=== PATIENT | female | born 1965 | race Caucasian/White ===

== ENCOUNTER 2024-02-19 18:51 | Observation (INO) | payer BC, SELFPAY ==
[2024-02-19 18:58] VITALS: PULSE 107; RESP 18; TEMP 36.7; O2SAT 98
--- NOTE | 2024-02-19 19:06 | XRR_ITS ---
PROCEDURE INFORMATION: Exam: XR Chest Exam date and time: 02/19/2024 8:25 PM Age: 58 years old Clinical indication: Shortness of breath; Additional info: Palpitations TECHNIQUE: Imaging protocol: Radiologic exam of the chest. Views: 1 view. COMPARISON: No relevant prior studies available. FINDINGS: Lungs: Unremarkable. No consolidation. Pleural spaces: Unremarkable. No pleural effusion. No pneumothorax. Heart/Mediastinum: Unremarkable. No cardiomegaly. Bones/joints: Moderate thoracic spondylosis. XR/XR chest 1V portable [id number] IMPRESSION: No acute findings.
--- NOTE | 2024-02-19 19:06 | ECG_ITS ---
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 Measurements Intervals [place] Rate: 121 P: 0 CA: 0 QRS: 45 QRSD: 81 T: 37 QT: 326 QTc: 464 Interpretive Statements ATRIAL FIBRILLATION WITH RAPID VENTRICULAR RESPONSE MODERATE ST DEPRESSION [0.05+ mV ST DEPRESSION] No previous ECG available for comparison Electronically Signed On 02-20-2024 0:02:31 CDT by Ceferino Huddleston M.D. [email or web address]/store/NU/[id number] f
[2024-02-19 19:49] LABS: Basophils # 0.1 10^3/uL (0.0-0.1); Basophils % 0.7 %; Eosinophils # 0.1 10^3/uL (0.0-0.8); Eosinophils % 1.3 %; Hematocrit 43.7 % (36-47); Lymphocytes # 2.2 10^3/uL (0.8-4.8); Lymphocytes % 24.9 %; Mean Corpuscular HGB Conc 33.2 g/dL (30-55); Mean Corpuscular Hemoglobin 27.2 pg (27-33); Mean Corpuscular Volume 81.8 fl (85-98); Mean Platelet Volume 11.5 fL (7.4-10.4); Monocytes # 0.7 10^3/uL (0.2-0.9); Monocytes % 7.6 %; Neutrophils # 5.71 10^3/uL (1.8-7.7); Neutrophils % 65.3 %; Nucleated Red Blood Cells % 0 %; Platelet Count 284 10^3/cmm (157-399); Red Blood Count 5.34 10^6/uL (3.85-5.65); Red Cell Distribution Width 13.2 % (12.1-15.1); White Blood Count 8.74 10^3/uL (3.29-11.43)
[2024-02-19 20:11] LABS: Troponin(5th) Baseline 7 ng/L (0-10)
[2024-02-19 20:15] VITALS: BP 152/81; PULSE 136; RESP 18; O2SAT 96
--- NOTE | 2024-02-19 20:17 | ED_ITS ---
HPI - Arrhythmia/Palpitations 2 General: Chief Complaint: Arrhythmia/Palpitations Stated Complaint: in Afib Chest pain sob Time Seen by Provider: 02/19/24 20:13 History of Present Illness: 58-year-old female with a history of atr ial fibrillation who presents to the emergency room with A-fib with RVR. She says she has been having issues with atrial fibrillation recently. 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 She has been admitted to [facility] several times recently and got her rate down but then it has been coming back up today. Symptoms were in the 180s. Here she is ranging between 110 and 150. She says they changed her from metoprolol to diltiazem and she had her first dose of that today. No chest pain. No lower extremity swelling. She is on Eliquis. No altered mental status. No focal motor deficits. No fevers. No cough. Review of Systems 2 Narrative: Constitutional symptoms: Negative except as documented in HPI. Skin symptoms: Negative except as documented in HPI. Eye symptoms: Negative except as documented in HPI. ENMT symptoms: Negative except as documented in HPI. Respiratory symptoms: Negative except as documented in HPI. Cardiovascular symptoms: Negative except as documented in HPI. Gastrointestinal symptoms: Negative except as documented in HPI. Genitourinary symptoms: Negative except as documented in HPI. Musculoskeletal symptoms: Negative except as documented in HPI. Neurologic symptoms: Negative except as documented in HPI. Psychiatric symptoms: Negative except as documented in HPI. Endocrine symptoms: Negative except as documented in HPI. Physical Exam 2 Narrative: EXAM NARRATIVE: General: Alert, no acute distress. Skin: Warm, dry. Head: Normocephalic, atraumatic. Neck: Supple, trachea midline. Eye: Extraocular movements are intact. Ears, nose, mouth and throat: mucosa moist. Cardiovascular: Irregularly irregular, tachycardic, normal peripheral perfusion. Respiratory: Lungs are clear to auscultation, respirations are non-labored, breath sounds are equal, Symmetrical chest wall expansion. Gastrointestinal: Soft, Nontender, Non distended, Normal bowel sounds. Musculoskeletal: Normal ROM, no deformity. Neurological: Alert and oriented, No focal neurological deficit observed. Psychiatric: Cooperative, appropriate mood & affect. Course 2 Vital Signs: Vital signs: Vital Signs Temperature 98.0 F 02/19/24 18:58 Pulse Rate 101 H 02/19/24 21:00 Respiratory Rate 24 H 02/19/24 21:00 Blood Pressure 145/87 02/19/24 21:00 Pulse Oximetry 96 02/19/24 21:00 Oxygen Delivery Me thod Room Air 02/19/24 21:00 MDM - Arrhythmia/Palpitations Medical Decision Making Medical decision making: Differential diagnosis including but not limited to and based on the above HPI, review of systems and physical exam: for patient with palpitations: atrial fibrillation with rapid ventricular response. ventricular tachycardia. sinus tachycardia. PVCs. also concern for underlying issues causing tachycardia. Infection, electrolyte abnormalities and thyroid issues Orders placed to evaluate differential diagnosis based on the above differential, HPI and physical exam Lab Review: Laboratory results were reviewed and interpreted by myself the emergency room physician. No leukocytosis. White count is 8. No anemia. Hemoglobin is 14. BUN and creatinine are slightly elevated at 13 and 1.2. I do not have any comparisons. Potassium is 3.4. Magnesium is 1.5. Replacing both. Urinalysis is pending Chest x-ray: No acute process. No infiltrate. No pneumothorax. No cardiomegaly. This was reviewed and interpreted by myself the ER physician. I reviewed the patient's medical record. Reexamination: Patient continues to bounce from about 105 to 155. She has no increased work of breathing. No altered mental status. No focal motor deficits. She complains of no abdominal pain no nausea or vomiting. Assessment and plan: Atrial fibrillation with rapid ventricular response. Hypomagnesemia Hypokalemia ?Diltiazem and a diltiazem drip. 10/10 ? 2 g IV magnesium. 40 mill equivalents IV potassium -I discussed the patient with the hospitalist on-call who is admitting the patient. - Discussed findings and plan with patient. Answered any questions. - All laboratory values were reviewed and interpreted personally by myself, the ER physician - All imaging was reviewed and interpreted personally by myself, the ER physician. - Evaluation and treatment of this problem were appropriate in the emergency setting -I spent a total of >35 minutes of critical care time managing the patient, independent of any other practitioner. -The time involved in the performance of separately reportable procedures was not counted towards critical care time. Lab Data 02/19/24 19:42 02/19/24 19:42 Radiology Impressions Chest X-Ray 02/19/24 19:06 IMPRESSION: No acute findings. Laboratory Results WBC 8.74 10^3/uL (3.29-11.43) 02/19/24 19:42 RBC 5.34 10^6/uL (3.85-5.65) 02/19/24 19:42 Hgb 14.50 g/dL (11.27-16.99) 02/19/24 19:42 Hct 43.7 % (36-47) 02/19/24 19:42 MCV 81.8 fl (85-98) L 02/19/24 19:42 MCH 27.2 pg (27-33) 02/19/24 19:42 MCHC 33.2 g/dL (30-55) 02/19/24 19:42 RDW 13.2 % (12.1-15.1) 02/19/24 19:42 Plt Count 284 10^3/cmm (157-399) 02/19/24 19:42 MPV 11.5 fL (7.4-10.4) H 02/19/24 19:42 Neut % (Auto) 65.3 % 02/19/24 19:42 Lymph % (Auto) 24.9 % 02/19/24 19:42 [place] % (Auto) 7.6 % 02/19/24 19:42 Eos % (Auto) 1.3 % 02/19/24 19:42 Baso % (Auto) 0.7 % 02/19/24 19:42 Neut # (Auto) 5.71 10^3/uL (1.8-7.7) 02/19/24 19:42 Lymph # (Auto) 2.2 10^3/uL (0.8-4.8) 02/19/24 19:42 [place] # (Auto) 0.7 10^3/uL (0.2-0.9) 02/19/24 19:42 Eos # (Auto) 0.1 10^3/uL (0.0-0.8) 02/19/24 19:42 Baso # (Auto) 0.1 10^3/uL (0.0-0.1) 02/19/24 19:42 Nucleated RBC % (auto) 0 % 02/19/24 19:42 Nucleated RBCs # 0.0 /100WBC 02/19/24 19:42 Sodium 141 mmol/L (136-145) 02/19/24 19:42 Potassium 3.4 mmol/L (3.5-5.1) L 02/19/24 19:42 Chloride 105 mmol/L (98-107) 02/19/24 19:42 Carbon Dioxide 19 mmol/L (22-29) L 02/19/24 19:42 Anion Gap 20.4 (5-19) H 02/19/24 19:42 BUN 13 mg/dL (6-20) 02/19/24 19:42 Creatinine 1.2 mg/dL (0.5-0.9) H 02/19/24 19:42 GFR Calculation 46.0 mL/min (90-130) L 02/19/24 19:42 Glucose 123 mg/dL (65-115) H 02/19/24 19:42 Calculated Osmolality 293 mOsm/kg (285-295) 02/19/24 19:42 Calcium 9.2 mg/dL (8.5-10.5) 02/19/24 19:42 Magnesium 1.5 mg/dL (1.7-2.3) L 02/19/24 19:42 Total Bilirubin 0.3 mg/dL (0.15-1.2) 02/19/24 19:42 AST 16 U/L (0-32) 02/19/24 19:42 ALT 17 U/L (0-33) 02/19/24 19:42 Alkaline Phosphatase 106 U/L (35-105) H 02/19/24 19:42 Troponin T Baseline 7 ng/L (0-10) 02/19/24 19:42 Total Protein 8.1 g/dL (6.6-8.7) 02/19/24 19:42 Albumin 4.3 g/dL (3.5-5.2) 02/19/24 19:42 Globulin 3.8 g/dL (1.3-4.6) 02/19/24 19:42 TSH 0.87 uIU/mL (0.27-4.20) 02/19/24 19:42 All radiology interpretation(s) finalized by discharge Discharge Plan Discharge Patient Disposition: Admitted As Inpatient Clinical Impression: Atrial fibrillation with rapid ventricular response Condition: Stable Coding Level of Care Code ED [place] Former for Cedricg Moisés
[2024-02-19 20:18] LABS: Alanine Aminotransferase 17 U/L (0-33); Albumin Level 4.3 g/dL (3.5-5.2); Alkaline Phosphatase 106 U/L (35-105); Aspartate Amino Transferase 16 U/L (0-32); Blood Urea Nitrogen 13 mg/dL (6-20); Calcium 9.2 mg/dL (8.5-10.5); Carbon Dioxide 19 mmol/L (22-29); Chloride 105 mmol/L (98-107); Globulin 3.8 g/dL (1.3-4.6); Glucose 123 mg/dL (65-115); Magnesium 1.5 mg/dL (1.7-2.3); Osmolality Calculated 293 mOsm/kg (285-295); Sodium 141 mmol/L (136-145); Thyroid Stimulating Hormone 0.87 uIU/mL (0.27-4.20); Total Bilirubin 0.3 mg/dL (0.15-1.2); Total Protein 8.1 g/dL (6.6-8.7)
[2024-02-19] MEDS: dilTIAZem 100 MG in sodium chloride 0.9% (add-van) 100 ML 10 MG IV (20:29)
[2024-02-19 20:30] VITALS: BP 146/84; PULSE 116; RESP 20; O2SAT 94
[2024-02-19] MEDS: dilTIAZem 5 mg/mL SDV 5 mL 10 MG IVP (20:30)
[2024-02-19 20:31] LABS: Anion Gap 20.4 (5-19); Potassium 3.4 mmol/L (3.5-5.1)
--- NOTE | 2024-02-19 20:37 | PC.NURSE ---
Diltiazem started at 5mL/hr
--- NOTE | 2024-02-19 20:37 | PC.NURSE ---
MEDICATIONS ADMINISTERED ON THIS PT ADMINISTERED BY ANTONIO DIAL RN. MEDICATIONS MISTAKENLY DOCUMENTED UNDER OTHER RN, RAKESH ALVARENGA.
[2024-02-19 21:00] VITALS: BP 145/87; PULSE 101; RESP 24; O2SAT 96
--- NOTE | 2024-02-19 21:06 | ECG_ITS ---
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 Measurements Intervals [place] Rate: 119 P: 0 DC: 0 QRS: 39 QRSD: 77 T: -3 QT: 349 QTc: 492 Interpretive Statements ATRIAL FIBRILLATION WITH RAPID VENTRICULAR RESPONSE NONSPECIFIC ST & T-WAVE ABNORMALITY ABNORMAL RHYTHM ECG Compared to ECG 02/19/2024 18:52:31 T-wave abnormality now present ST (T wave) deviation no longer present Electronically Signed On 02-20-2024 0:04:52 CDT by Ceferino Huddleston M.D. [email or web address]/store/OM/[id number]
[2024-02-19 21:31] LABS: Procalcitonin 0.06 ng/mL (0-0.5)
--- NOTE | 2024-02-19 21:57 | PC.NURSE ---
attempted to call report at [phone]. will call back.
[2024-02-19 22:00] VITALS: BP 122/87; PULSE 114; RESP 19; O2SAT 97
[2024-02-19 22:18] LABS: Troponin 5 2HR 8.46 ng/L (0-10); Troponin 5 2HR Delta 1.46 ABS# (0-10)
--- NOTE | 2024-02-19 23:25 | PM.HP ---
Providers/Chief Complaint Admitting Physician: Lucas Roper MD Primary Care Provider: BOBBI Ariza Chief Complaint: in Afib Chest pain sob History of Present Illness Taryn Maldonado is a 58 year old female with past medical history of breast cancer status post chemoradiation in [id number]. She has had longstanding tachycardia for many years however was previously determined not to be atrial fibrillation. In November 2023, she had persistent palpitations and was evaluated at [facility] in [place] where she was diagnosed with A-fib. Initially started treatment with metoprolol, however was then switched to diltiazem recently as metoprolol was unable to control her heart rate adequately. She is on anticoagulation with Eliquis 5 mg p.o. twice daily. She presented to the emergency room today due to palpitations that started at around 1 PM today. Heart rate was 150, her smart watch alerted her to this being atrial fibrillation and she presented into the emergency room. No dyspnea. She was found to have A-fib upon arrival with a rate of 140 bpm. She started infusion with Cardizem in the emergency room which is continuing so far. Any chest pain. Stated that she had an echocardiogram in November at [facility] which had detected some leakage , was otherwise unremarkable. She has baseline CKD and chronic lower extremity edema. There has been no worsening of the edema recently. Review of Systems General: Reports: 10 or more systems reviewed and unremarkable except in HPI and below Const: Denies: fever(s), chills or body aches Eyes: Denies: change in vision, blurry vision or photophobia ENMT: Reports: hoarseness; Denies: throat pain, enlarged tonsils, odynophagia or nasal congestion Card: Denies: chest pain, palpitations, irregular heart rhythm, edema, swelling of feet/ankles, lightheadedness, pre-syncope, dyspnea on exertion or orthopnea Resp: Denies: dyspnea, productive cough, non-productive cough, wheezing, stridor, pain on inspiration, change in phlegm color, hemoptysis or chest congestion GI: Denies: abdominal pain, nausea, vomiting, hematemesis, coffee ground emesis, dysphagia, heartburn, diarrhea, constipation, GI cramping, change in stool character, hematochezia or melena : Denies: flank pain, difficulty voiding, dysuria, urinary frequency, urinary urgency, urinary hesitancy or hematuria Musc: Denies: neck pain, back pain, extremity pain, joint swelling, joint warmth or deformity Neuro: Denies: headache(s), numbness in extremities, weakness in extremities, sensory changes, difficulty walking, frequent falls, dizziness, vertigo, behavioral changes, Slurred speech present or seizure-like activity Psych: Denies: anxiety, depression, suicidal ideation or homicidal ideation Endo: Denies: polyuria, polydipsia, tired all the time, cold intolerance or hot flashes Stan/Lymph: Denies: easy bruising or easy bleeding Medications/Allergies Home Medications Medication Instructions Recorded Confirmed Last Taken Type lisinopril 5 mg tablet 5 mg PO DAILY 11/27/22 02/20/24 02/19/24 History omeprazole 40 mg capsule,delayed 40 mg PO DAILY 11/27/22 02/20/24 02/19/24 History release apixaban 5 mg tablet (Eliquis) 5 mg PO BID 02/20/24 02/20/24 02/19/24 History diltiazem HCl 120 mg 120 mg PO 1XD 02/20/24 02/20/24 02/19/24 History capsule,extended release 24 hr Allergies Allergy/AdvReac Type Severity Reaction Status Date / Time codeine Allergy Intermediate ADR-Confusi Verified 11/27/22 17:45 on Sulfa (Sulfonamide Allergy Intermediate ADR-Confusi Verified 11/27/22 17:45 Antibiotics) on Latex, Natural Rubber Allergy ALGY-Rash Verified 02/19/24 19:01 Penicillins Allergy ADR-Confusi Verified 02/19/24 19:01 on PFSH Acute PFSH: Medical History Chronic anticoagulation Hypertension Swelling of lower extremity CKD (chronic kidney disease) Breast cancer s/p chemoradiation 2015- Vitals/I&O/Wt Last Vital Signs Temp 98.0 F 02/19/24 18:58 Pulse 114 H 02/19/24 22:00 Resp 19 H 02/19/24 22:00 BP 122/87 02/19/24 22:00 Pulse Ox 97 02/19/24 22:00 O2 Del Method Room Air 02/19/24 22:00 02/19/24 02/19/24 02/20/24 14:59 22:59 06:59 Intake Total 1.167 / 1.167 Balance 1.167 / 1.167 Weight last 48 hrs Weight 104.326 kg Physical Exam Narrative: General: No acute distress, AO x3 HEENT: PERRLA, pupils bilaterally equal and reactive, pallors not present Chest: Normal vesicular breath sounds, no added sounds, equal good air entry bilaterally CVS: S1-S2 regular, no murmurs, no tachycardia, no gallops, no rubs Abdomen: Soft, nontender, no organomegaly, bowel sounds present Neuro: No focal deficits, no facial deformity, AO x3, power 5/5 in all limbs Data 02/20/24 01:59 02/20/24 01:59 Other Labs: trop 7--> 8.4--> pending tsh 0.87 Patient: Taryn Maldonado Unit #: [id number] : 1965 Age/Sex: 58 / F ADM Date: 02/19/24 Loc: ER Room/Bed: Attending Dr: Rosetta Busby MD Ordering Provider/Ordering MD: Jacqueline Rees MD Date of Service: 02/19/24 Procedure(s): XR chest 1V portable [id number] Accession Number(s): [id number] Report Number: [id number] PROCEDURE INFORMATION: Exam: XR Chest Exam date and time: 02/19/2024 8:25 PM Age: 58 years old Clinical indication: Shortness of breath; Additional info: Palpitations TECHNIQUE: Imaging protocol: Radiologic exam of the chest. Views: 1 view. COMPARISON: No relevant prior studies available. FINDINGS: Lungs: Unremarkable. No consolidation. Pleural spaces: Unremarkable. No pleural effusion. No pneumothorax. Heart/Mediastinum: Unremarkable. No cardiomegaly. Bones/joints: Moderate thoracic spondylosis. XR/XR chest 1V portable [id number] IMPRESSION: No acute findings. A&P Assessment and plan (1) Atrial fibrillation with rapid ventricular response: 58-year-old lady diagnosed with A-fibin November 2023. Presented today with palpitations, found to have A-fib with RVR on EKG. She has been started on Cardizem infusion in the emergency room which we will continue for now. Heart rate at the time of this assessment is at 101 bpm. Acute to CSU Start overlap with oral Cardizem 30 mg every 6 hours. Will titrate according to heart rate response. TSH normal. Recently had echocardiogram at [facility] in November, results have been requested. 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 Has previously been followed at [facility], however states that she will not be returning there. Denies dyspnea. No signs of CHF at this present time. (2) Chronic anticoagulation: Continue Eliquis 5 mg p.o. twice daily Plan DVT prophylaxis: Eliquis will suffice Full code Attestations Medical Necessity Statement*: Greater than 2 midnight stay is expected for control of A-fib with RVR, obtaining pertinent past results, further management dependent on clinical course. Coding Level of Care Code Acute Code for Chg Fwd High MDM includes number and complexity of problems actively addressed during encounter, amount and/or complexity of data reviewed/ordered and described risk of complication, morbidity or mortality of management as documented Diagnoses Atrial fibrillation with rapid ventricular response I48.91 Chronic anticoagulation Z79.01
[2024-02-20] VITALS (9 sets, daily range): BP systolic 132–152; BP diastolic 79–90; PULSE 76–104; RESP 15–23; TEMP 36.6; O2SAT 92–97; BMI 38.1
[2024-02-20 00:44] LABS: Iron 44 ug/dL (37-145)
[2024-02-20] MEDS: potassium chloride ER 20 mEq Tablet 40 MEQ PO (00:57)
[2024-02-20] MEDS: magnesium sulfate premix 2 GM/50 ML PIGGYBACK IV (00:58)
[2024-02-20 01:00] LABS: Vitamin B12 424 pg/mL (232-1245)
[2024-02-20 01:20] LABS: Percent Saturation 13.2 % (20-50); Total Iron Binding Capacity 331 mcg/dl; Unsaturated Iron Binding 287 ug/dL (112-347)
[2024-02-20 01:39] LABS: Add Urine Microscopic? YES; Bilirubin Urine Neg (Negative); Blood Urine Neg (Negative); Glucose Urine UA Norm (Normal); Ketones Urine Negative (Negative); Leukocyte Esterase Urine Trace (Negative); Nitrate Urine Negative (Negative); Protein Urine Neg (Negative); Specific Gravity, Urine 1.005 (1.005-1.030); Urine Appearance Clear (CLEAR); Urine Color Yellow (Yellow); Urobilinogen Urine Norm (Negative); pH Urine 6 (5-7)
[2024-02-20 01:40] LABS: Bacteria Urine TRACE /hpf; WBC Urine 0-5 /hpf (0-5)
[2024-02-20 01:41] LABS: Add Urine Culture? No
[2024-02-20] MEDS: dilTIAZem 30 mg Tablet PO ×2 (02:20→07:15)
[2024-02-20 02:33] LABS: Basophils % 0.5 %; Eosinophils # 0.1 10^3/uL (0.0-0.8); Eosinophils % 1.7 %; Hematocrit 37.6 % (36-47); Lymphocytes % 26.3 %; Mean Corpuscular HGB Conc 32.7 g/dL (30-55); Mean Corpuscular Hemoglobin 27.5 pg (27-33); Mean Corpuscular Volume 84.1 fl (85-98); Mean Platelet Volume 11.6 fL (7.4-10.4); Monocytes # 0.7 10^3/uL (0.2-0.9); Monocytes % 9.3 %; Neutrophils # 4.69 10^3/uL (1.8-7.7); Neutrophils % 61.5 %; Nucleated Red Blood Cells % 0 %; Platelet Count 234 10^3/cmm (157-399); Red Blood Count 4.47 10^6/uL (3.85-5.65); Red Cell Distribution Width 13.2 % (12.1-15.1); White Blood Count 7.63 10^3/uL (3.29-11.43)
[2024-02-20 02:46] LABS: Troponin 5 6HR 7.64 ng/L (0-10); Troponin 5 6HR Delta 0.64 ng/L (0-12)
[2024-02-20 02:49] LABS: Chol HDL Ratio 4.44 mg/dL (0.0-4.40); Cholesterol 142 mg/dL (0-200); Estmated Average Glucose 105; HDL Cholesterol 32 mg/dL (60-100); Hemoglobin A1C 5.3 % (4.0-6.0); LDL Cholesterol Calculated 91 mg/dL (50-129); LDL HDL Ratio 2.84 RATIO (0.00-3.22); Triglycerides 97 mg/dL (0-150)
[2024-02-20 02:50] LABS: Alanine Aminotransferase 13 U/L (0-33); Albumin Level 3.5 g/dL (3.5-5.2); Alkaline Phosphatase 93 U/L (35-105); Anion Gap 18.5 (5-19); Aspartate Amino Transferase 11 U/L (0-32); Blood Urea Nitrogen 14 mg/dL (6-20); Calcium 8.6 mg/dL (8.5-10.5); Carbon Dioxide 19 mmol/L (22-29); Chloride 105 mmol/L (98-107); Creatinine Clr Calc Pharmacy 59.6762; Glomerular Filtration Rate 41.9 mL/min (90-130); Glucose 122 mg/dL (65-115); Magnesium 2.1 mg/dL (1.7-2.3); Osmolality Calculated 290 mOsm/kg (285-295); Phosphorus 3.5 mg/dL (2.5-4.5); Potassium 3.5 mmol/L (3.5-5.1); Sodium 139 mmol/L (136-145); Total Bilirubin 0.2 mg/dL (0.15-1.2); Total Protein 6.5 g/dL (6.6-8.7)
--- NOTE | 2024-02-20 03:55 | ECG_ITS ---
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 Measurements Intervals [place] Rate: 78 P: 56 ME: 139 QRS: 66 QRSD: 90 T: 12 QT: 375 QTc: 427 Interpretive Statements SINUS RHYTHM POSSIBLE LEFT ATRIAL ENLARGEMENT [-0.1mV P-WAVE IN V1/V2] LOW QRS VOLTAGE IN PRECORDIAL LEADS [QRS DEFLECTION < 1.0 mV IN CHEST LEADS] MODERATE T-WAVE ABNORMALITY, CONSIDER LATERAL ISCHEMIA [-0.1+ mV T-WAVE IN I/aVL/V5/V6] MODERATE T-WAVE ABNORMALITY, CONSIDER INFERIOR ISCHEMIA [-0.1+ mV T-WAVE IN II/aVF] Compared to ECG 02/19/2024 22:04:36 Low QRS voltage now present Possible ischemia now present Atrial fibrillation no longer present T-wave abnormality still present Electronically Signed On 02-20-2024 22:09:02 CDT by Aditya Hester M.D. [id number]
[2024-02-20] MEDS: apixaban 5 mg Tablet PO (08:32)
[2024-02-20] MEDS: lisinopril 5 mg Tablet PO (08:32)
[2024-02-20] MEDS: pantoprazole DR 40 mg Tablet PO (08:32)
--- NOTE | 2024-02-20 12:32 | PM.DCS ---
Discharge Providers Date of Admission: 02/20/24 00:04 Date of Discharge: February 20, 2024 Attending Provider at Admission: Lucas Roper MD Attending Provider at Discharge: Ethan Meyers MD Primary Care Provider: BOBBI Ariza Diagnoses at Discharge Discharge Diagnosis (1) Atrial fibrillation with rapid ventricular response: Status: Acute (2) Chronic anticoagulation: Status: Acute Reason for Visit Reason for Visit: in Afib Chest pain sob Hospital Course Hospital Course delmar Maldonado is a 58 year old female with past medical history of breast cancer status post chemoradiation in [id number]. She has had longstanding tachycardia for many years however was previously determined not to be atrial fibrillation. In November 2023, she had persistent palpitations and was evaluated at [facility] in [place] where she was diagnosed with A-fib. Initially started treatment with metoprolol, however was then switched to diltiazem recently as metoprolol was unable to control her heart rate adequately. She is on anticoagulation with Eliquis 5 mg p.o. twice daily. She presented to the emergency room today due to palpitations that started at around 1 PM today. Heart rate was 150, her smart watch alerted her to this being atrial fibrillation and she presented into the emergency room. No dyspnea. She was found to have A-fib upon arrival with a rate of 140 bpm. She started infusion with Cardizem in the emergency room which is continuing so far. Any chest pain. Stated that she had an echocardiogram in November at [facility] which had detected some leakage , was otherwise unremarkable. She has baseline CKD and chronic lower extremity edema. There has been no worsening of the edema recently. Patient was managed for A-fib with RVR, managed on a Cardizem drip, converted to normal sinus rhythm late in the evening, managed on p.o. Cardizem, will be discharged on p.o. Cardizem 120 mg twice daily, with close follow-up with primary care provider and cardiac electrophysiology at [facility]. Physical Exam Const: COMMON NORMALS: no acute distress and patient oriented x3 Resp: COMMON NORMALS: normal respiratory effort, No retractions, No use of accessory muscles and clear to auscultation bilaterally AUSCULTATION: clear to auscultation bilaterally Cardio: COMMON NORMALS: regular rhythm, S1 normal heart sound present and S2 normal heart sound present RHYTHM: regular rhythm HEART SOUNDS: S1 normal heart sound present and S2 normal heart sound present GI: COMMON NORMALS: Normal to inspection, nondistended, normoactive bowel sounds present and non-tender Extremity: COMMON NORMALS: no pedal edema Neuro: COMMON NORMALS: patient oriented x3 Psych: COMMON NORMALS: mental status grossly normal Discharge Data Studies Completed and Pending Completed Studies During Hospitalization Category Date Time Status XR chest 1V portable [id number] Stat Exams 02/19/24 19:06 Completed Radiology Impressions Chest X-Ray 02/19/24 19:06 IMPRESSION: No acute findings. Laboratory Results WBC 7.63 10^3/uL (3.29-11.43) 02/20/24 01:59 RBC 4.47 10^6/uL (3.85-5.65) 02/20/24 01:59 Hgb 12.30 g/dL (11.27-16.99) 02/20/24 01:59 Hct 37.6 % (36-47) 02/20/24 01:59 MCV 84.1 fl (85-98) L 02/20/24 01:59 MCH 27.5 pg (27-33) 02/20/24 01:59 MCHC 32.7 g/dL (30-55) 02/20/24 01:59 RDW 13.2 % (12.1-15.1) 02/20/24 01:59 Plt Count 234 10^3/cmm (157-399) 02/20/24 01:59 MPV 11.6 fL (7.4-10.4) H 02/20/24 01:59 Neut % (Auto) 61.5 % 02/20/24 01:59 Lymph % (Auto) 26.3 % 02/20/24 01:59 [place] % (Auto) 9.3 % 02/20/24 01:59 Eos % (Auto) 1.7 % 02/20/24 01:59 Baso % (Auto) 0.5 % 02/20/24 01:59 Neut # (Auto) 4.69 10^3/uL (1.8-7.7) 02/20/24 01:59 Lymph # (Auto) 2.0 10^3/uL (0.8-4.8) 02/20/24 01:59 [place] # (Auto) 0.7 10^3/uL (0.2-0.9) 02/20/24 01:59 Eos # (Auto) 0.1 10^3/uL (0.0-0.8) 02/20/24 01:59 Baso # (Auto) 0.0 10^3/uL (0.0-0.1) 02/20/24 01:59 Nucleated RBC % (auto) 0 % 02/20/24 01:59 Nucleated RBCs # 0.0 /100WBC 02/20/24 01:59 Sodium 139 mmol/L (136-145) 02/20/24 01:59 Potassium 3.5 mmol/L (3.5-5.1) 02/20/24 01:59 Chloride 105 mmol/L (98-107) 02/20/24 01:59 Carbon Dioxide 19 mmol/L (22-29) L 02/20/24 01:59 Anion Gap 18.5 (5-19) 02/20/24 01:59 BUN 14 mg/dL (6-20) 02/20/24 01:59 Creatinine 1.3 mg/dL (0.5-0.9) H 02/20/24 01:59 GFR Calculation 41.9 mL/min (90-130) L 02/20/24 01:59 Glucose 122 mg/dL (65-115) H 02/20/24 01:59 Estimat Average Glucose 105 02/20/24 01:59 Hemoglobin A1c 5.3 % (4.0-6.0) 02/20/24 01:59 Calculated Osmolality 290 mOsm/kg (285-295) 02/20/24 01:59 Calcium 8.6 mg/dL (8.5-10.5) 02/20/24 01:59 Phosphorus 3.5 mg/dL (2.5-4.5) 02/20/24 01:59 Magnesium 2.1 mg/dL (1.7-2.3) 02/20/24 01:59 Iron 44 ug/dL (37-145) 02/19/24 00:00 TIBC 331 mcg/dl 02/19/24 00:00 % Saturation 13.2 % (20-50) L 02/19/24 00:00 Unsat Iron Binding 287 ug/dL (112-347) 02/19/24 00:00 Total Bilirubin 0.2 mg/dL (0.15-1.2) 02/20/24 01:59 AST 11 U/L (0-32) 02/20/24 01:59 ALT 13 U/L (0-33) 02/20/24 01:59 Alkaline Phosphatase 93 U/L (35-105) 02/20/24 01:59 Troponin T Baseline 7 ng/L (0-10) 02/19/24 19:42 Troponin T 120 Minute 8.46 ng/L (0-10) 02/19/24 21:40 Delta Troponin T 1.46 ABS# (0-10) 02/19/24 21:40 Troponin T Hi Sens 6Hr 7.64 ng/L (0-10) 02/20/24 01:59 Troponin T Hi Sens 6Hr Delta 0.64 ng/L (0-12) 02/20/24 01:59 Total Protein 6.5 g/dL (6.6-8.7) L 02/20/24 01:59 Albumin 3.5 g/dL (3.5-5.2) 02/20/24 01:59 Globulin 3.0 g/dL (1.3-4.6) 02/20/24 01:59 Triglycerides 97 mg/dL (0-150) 02/20/24 01:59 Cholesterol 142 mg/dL (0-200) 02/20/24 01:59 LDL Cholesterol, Calc 91 mg/dL (50-129) 02/20/24 01:59 HDL Cholesterol 32 mg/dL (60-100) L 02/20/24 01:59 LDL/HDL Ratio 2.84 RATIO (0.00-3.22) 02/20/24 01:59 Cholesterol/HDL Ratio 4.44 mg/dL (0.0-4.40) H 02/20/24 01:59 Vitamin B12 424 pg/mL (232-1245) 02/19/24 00:00 Folate 12.0 ng/mL (4.8-37.3) 02/20/24 01:59 Procalcitonin 0.06 ng/mL (0-0.5) 02/19/24 19:42 TSH 0.87 uIU/mL (0.27-4.20) 02/19/24 19:42 Urine Color Yellow (Yellow) 02/20/24 01:13 Urine Appearance Clear (CLEAR) 02/20/24 01:13 Urine pH 6 (5-7) 02/20/24 01:13 Ur Specific [place] 1.005 (1.005-1.030) 02/20/24 01:13 Urine Protein Neg (Negative) 02/20/24 01:13 Urine Glucose (UA) Norm (Normal) 02/20/24 01:13 Urine Ketones Negative (Negative) 02/20/24 01:13 Urine Blood Neg (Negative) 02/20/24 01:13 Urine Nitrate Negative (Negative) 02/20/24 01:13 Urine Bilirubin Neg (Negative) 02/20/24 01:13 Urine Urobilinogen Norm mg/dL (Negative) 02/20/24 01:13 Ur Leukocyte Esterase Trace (Negative) H 02/20/24 01:13 Urine RBC None /hpf (0-2) 02/20/24 01:13 Urine WBC 0-5 /hpf (0-5) 02/20/24 01:13 Ur Squamous Epith Cells 5-10 /hpf (0-5) H 02/20/24 01:13 Amorphous Sediment Not Reportable 02/20/24 01:13 Urine Bacteria Trace /hpf (NONE) 02/20/24 01:13 Vitals Last Vital Signs Temp 97.9 F 02/20/24 07:30 Pulse 78 02/20/24 07:30 Resp 23 H 02/20/24 07:30 BP 135/86 02/20/24 07:30 Pulse Ox 97 02/20/24 07:30 O2 Del Method Room Air 02/20/24 07:30 Discharge Plan Discharge Patient Disposition: Home Condition: Stable Prescriptions: New diltiazem HCl [Cardizem] 120 mg tablet 120 mg PO BID 30 Days Qty: 60 0RF Continued omeprazole 40 mg capsule,delayed release(DR/EC) 40 mg PO DAILY lisinopril 5 mg tablet 5 mg PO DAILY Eliquis 5 mg tablet 5 mg PO BID Discontinued diltiazem HCl 120 mg capsule,extended release 24hr 120 mg PO 1XD Discharge Orders: Discharge Order (Routine); Ordered 02/20/24 Ordered By: Ethan Meyers Referrals: Gretta Ferrari FNP [Primary Care Provider] - 03/02/24 1:00 pm Discharge Diet: Cardiac Discharge Activity: Resume usual activity Patient Instructions: Opioid Safety Activity Restrictions/Additional Instructions: - Please monitor heart rates and blood pressure ? If you develop chest pain or palpitations please go to emergency room ? Please follow-up with electrophysiology at [facility] Hospital Discharge Attestations Time Spent in Discharge Care*: greater than 30 min Quality Metrics Clinical Quality Measures [ No reported AMI, CVA or VTE this stay] Coding Level of Care Code 23417 Total time (in minutes) for Discharge: 45 Diagnoses Atrial fibrillation with rapid ventricular response I48.91 Chronic anticoagulation Z79.01
[2024-02-20] MEDS: dilTIAZem 60 mg Tablet PO (14:15)
--- NOTE | 2024-02-20 14:35 | PC.NURSE ---
Discharge Note Patient discharged to [home] via [w/c to POV] accompanied by [her spouse]. Discharge instructions reviewed with patient and/or surgical sales representative. Mobile pharmacy medications and/or prescriptions provided. Belongings/home medications returned.
== END 2024-02-20 14:44 | disposition home or self-care (01) ==
LOC: ER 21:15 → CSU 22:49
PROVIDERS: Admitting Provider Student in an Organized Health Care Education/Training Program; Emergency Provider Emergency Medicine; PCP Registered Nurse; Visit Provider Family Medicine
DX: I48.91 Unspecified atrial fibrillation (principal); Z79.01 Long term (current) use of anticoagulants; Z85.3 Personal history of malignant neoplasm of breast; Z92.21 Personal history of antineoplastic chemotherapy; R60.0 Localized edema; E11.22 Type 2 diabetes mellitus with diabetic chronic kidney disease; I12.9 Hypertensive chronic kidney disease with stage 1 through stage 4 chronic kidney disease, or unspecified chronic kidney disease; N18.9 Chronic kidney disease, unspecified
CPT/HCPCS: 36415; 71045; 80053; 80061; 81001; 82607; 82746; 83036; 83540; 83550; 83735; 84100; 84145; 84443; 84484; 85025; 93005; 94664; 96372; 96374; 96376; 99285; G0378; J1644; J3475; J3490

== ENCOUNTER 2024-02-21 23:28 | Emergency (ER) | payer BC, SELFPAY ==
--- NOTE | 2024-02-21 23:31 | XRR_ITS ---
PROCEDURE INFORMATION: Exam: XR Chest Exam date and time: 02/21/2024 11:32 PM Age: 58 years old Clinical indication: Pain; Chest pressure; Patient HX: C/O chest tightness with tachycardia. History of afib rvr and breast cancer. ; Additional info: Chest pain TECHNIQUE: Imaging protocol: Radiologic exam of the chest. Views: 1 view. COMPARISON: CR (CHEST, ) 02/19/2024 8:25 PM FINDINGS: Lungs: No focal consolidation or other acute appearing pulmonary opacity. Pleural spaces: No pleural effusion or pneumothorax noted. Heart/Mediastinum: There is cardiomegaly. Bones/joints: No acute osseous abnormality. Intraperitoneal space: There is no free intraperitoneal air. XR/XR chest 1V portable [id number] IMPRESSION: No acute cardiopulmonary disease.
[2024-02-21 23:32] VITALS: BP 117/76; PULSE 80; RESP 16; TEMP 36.5; O2SAT 98
--- NOTE | 2024-02-21 23:44 | ECG_ITS ---
[facility] Test Date: 2024-02-21 Pat Name: Taryn Maldonado Department: Room: Gender: Female Full Time: : 1965 Requested By: Marce Bo Order Number: [id number] Olsen MD: Ceferino Huddleston M.D. Measurements Intervals Show Low Rate: 84 P: 0 MS: 0 QRS: 53 QRSD: 80 T: 43 QT: 394 QTc: 467 Interpretive Statements ATRIAL FIBRILLATION Compared to ECG 02/20/2024 03:55:35 Sinus rhythm no longer present T-wave abnormality no longer present Possible ischemia no longer present Electronically Signed On 02-22-2024 21:37:28 CDT by Ceferino Huddleston M.D. [id number]
--- NOTE | 2024-02-22 00:01 | W.ED.ARRPALP ---
Documented by User: DARI Espinosa 02/22/24 00:43 HPI - Arrhythmia/Palpitations General: Chief Complaint: Arrhythmia/Palpitations Stated Complaint: Afib Time Seen by Provider: 02/21/24 23:30 Source: patient and family Mode of arrival: ambulatory Limitations: no limitations History of Present Illness: Patient is a nice 58-year-old female with a history of atrial fibrillation recently hospitalized for atrial fibrillation with RVR here for paroxysmal episode of A-fib with RVR earlier this evening. Patient states she was discharged from the hospital yesterday. She states they increased her dose of Cardizem from 120 daily to 120 twice daily. Patient states she did take both doses today. She states she woke up around 10:30 PM this evening and her watch alerted her that she was in A-fib. She states rate got as high as 170s. Upon arrival patient feels improved. She arrives with stable vital signs with a rate in the 80s. Patient states she has follow-up with cardiology/electrophysiology at [facility] next week. MD complaint: rapid heart beat, heart racing , skipped beats , palpitations, irregular heart beat and atrial fibrillation Onset (ago): hour(s) Duration: now resolved Severity: moderate Context: awoke with symptoms Arrhythmia history: atrial fibrillation and on anti-coagulants Associated symptoms: Reports no associated symptoms; Deny nausea, pre-syncope, syncope or vomiting Review of Systems Const: Denies: fever(s) Card: Reports: palpitations and irregular heart rhythm; Denies: chest pain, edema, swelling of feet/ankles, lightheadedness, syncope, pre-syncope, dyspnea on exertion, orthopnea, leg pain with exertion or acrocyanosis Resp: Reports: dyspnea (during episode-resolved now); Denies: productive cough, non-productive cough, wheezing, stridor, pain on inspiration, change in phlegm color, hemoptysis or chest congestion GI: Denies: nausea or vomiting Musc: Denies: extremity pain or extremity swelling Neuro: Denies: numbness in extremities, weakness in extremities, sensory changes or dizziness PFS ED PFSH: Medical History Chronic anticoagulation Hypertension Swelling of lower extremity CKD (chronic kidney disease) Breast cancer s/p chemoradiation 2015- Physical Exam Const: COMMON NORMALS: no acute distress, patient oriented x3, no limitations, alert and well nourished GENERAL APPEARANCE: cooperative NUTRITIONAL APPEARANCE: obese ORIENTATION/CONSCIOUSNESS: Yes awake, Yes oriented to person, Yes oriented to place and Yes oriented to time Chest: COMMONS NORMALS: normal inspection of the chest and normal palpation of entire chest wall Resp: COMMON NORMALS: normal respiratory effort and clear to auscultation bilaterally AUSCULTATION: clear to auscultation bilaterally Cardio: COMMON NORMALS: regular rate and regular rhythm RATE: regular rate RHYTHM: regular rhythm OTHER: pt was in atrial fibrillation at initial presentation-EKG showing atrial fib with rate of 84; she converted to normal sinus at some point during her stay and stayed in this during most of examination/re-examinations Extremity: COMMON NORMALS: no clubbing, cyanosis or edema, no calf tenderness and no pedal edema GENERAL: Yes normal exam except as noted Neuro: COMMON NORMALS: patient oriented x3 SENSORIUM/ORIENTATION: Yes alert, Yes oriented to person, Yes oriented to place and Yes oriented to time Course Vital Signs: Vital signs: Vital Signs Temperature 97.7 F 02/21/24 23:32 Pulse Rate 80 02/21/24 23:32 Respiratory Rate 16 02/21/24 23:32 Blood Pressure 117/76 02/21/24 23:32 Pulse Oximetry 98 02/21/24 23:32 Oxygen Delivery Me thod Room Air 02/21/24 23:32 MDM - Arrhythmia/Palpitations Medical Decision Making Patient is a nice 58-year-old female with a history of atrial fibrillation here for paroxysmal episode of A-fib with RVR. By the time she arrived to the emergency department her initial EKG showing atrial fibrillation with a rate of 84. At time of my examination she has converted out of this and is now sinus rhythm. Patient is on Cardizem 120 twice daily. Her blood pressure currently is 117/76. Patient is worried if she has additional episodes at home and worried additional Cardizem may cause her blood pressure to lower. Discussed case with Dr. Sandhu who is recommending having patient take an additional 30 mg of Cardizem at home if she has an additional episode-can wait an hour unless severely symptomatic. If this does not relieve her symptoms then she will need to return. Recommend continue plan to follow up with cardiology next week. Lab work was not performed today as patient was just discharged from the hospital yesterday and would be unlikely to meter changes records clerk. Differential Diagnosis Likely palpitations and artial fibrillation Medical Records I reviewed the patient's medical records. Lab Data Radiology Impressions Chest X-Ray 02/21/24 23:31 IMPRESSION: No acute cardiopulmonary disease. All radiology interpretation(s) finalized by discharge Discharge Plan Discharge Patient Disposition: Home Clinical Impression: Atrial fibrillation Qualifiers: Atrial fibrillation type: unspecified Qualified Code(s): I48.91 - Unspecified atrial fibrillation Condition: Stable Prescriptions: New Cardizem 30 mg tablet 30 mg PO Q8H PRN (Reason: palpitations) Qty: 14 0RF No Action omeprazole 40 mg capsule,delayed release(DR/EC) 40 mg PO DAILY lisinopril 5 mg tablet 5 mg PO DAILY Eliquis 5 mg tablet 5 mg PO BID Cardizem 120 mg tablet 120 mg PO BID 30 Days Qty: 60 0RF Discharge Orders: Discharge ED (Routine); Ordered 02/22/24 Ordered By: Marce Bo Referrals: Gretta Ferrari FNP [Primary Care Provider] - Patient Instructions: Atrial Fibrillation, A-fib (Atrial Fibrillation) (ED) Activity Restrictions/Additional Instructions: As we discussed we decided to forego any imaging today as you are just discharged from the hospital and this unlikely would not change any form of management. I would like you to continue your normal 120 mg Cardizem twice daily. As we discussed if you go into atrial fibrillation with rates above 120 I would like you to take the additional 30 mg of Cardizem prescribed to you today. You may check your blood pressure prior to administering this medication. If blood pressure is below 110/70 then do not administer. You may wait an hour and if symptoms do not improve you need to return to the emergency department. Would like you to continue current plan to follow-up with your director of analytics/catalog library assistant next week. Coding Level of Care Code ED Master Automotive Technician for Michael Fwd Documented by User: Tommy Sandhu DO 06/15/24 02:59 HPI - Arrhythmia/Palpitations General: Chief Complaint: Arrhythmia/Palpitations Stated Complaint: Afib Time Seen by Provider: 02/21/24 23:30 PFSH ED PFSH: Medical History Chronic anticoagulation Hypertension Swelling of lower extremity CKD (chronic kidney disease) Breast cancer s/p chemoradiation 2015- Course Vital Signs: Vital signs: Vital Signs Temperature 97.7 F 02/21/24 23:32 Pulse Rate 80 02/21/24 23:32 Respiratory Rate 16 02/21/24 23:32 Blood Pressure 117/76 02/21/24 23:32 Pulse Oximetry 98 02/21/24 23:32 Oxygen Delivery Me thod Room Air 02/21/24 23:32 MDM - Arrhythmia/Palpitations Medical Decision Making Patient is a nice 58-year-old female with a history of atrial fibrillation here for paroxysmal episode of A-fib with RVR. By the time she arrived to the emergency department her initial EKG showing atrial fibrillation with a rate of 84. At time of my examination she has converted out of this and is now sinus rhythm. Patient is on Cardizem 120 twice daily. Her blood pressure currently is 117/76. Patient is worried if she has additional episodes at home and worried additional Cardizem may cause her blood pressure to lower. Discussed case with Dr. Sandhu who is recommending having patient take an additional 30 mg of Cardizem at home if she has an additional episode-can wait an hour unless severely symptomatic. If this does not relieve her symptoms then she will need to return. Recommend continue plan to follow up with cardiology next week. Lab work was not performed today as patient was just discharged from the hospital yesterday and would be unlikely to meter changes records clerk. This patient was originally seen by Mrs. Bo?LESIA Burger? I agree with her history, evaluation, and treatment. Lab Data Radiology Impressions Chest X-Ray 02/21/24 23:31 IMPRESSION: No acute cardiopulmonary disease. Discharge Plan Discharge Patient Disposition: Home Clinical Impression: Atrial fibrillation Qualifiers: Atrial fibrillation type: unspecified Qualified Code(s): I48.91 - Unspecified atrial fibrillation Condition: Stable Prescriptions: New Cardizem 30 mg tablet 30 mg PO Q8H PRN (Reason: palpitations) Qty: 14 0RF No Action omeprazole 40 mg capsule,delayed release(DR/EC) 40 mg PO DAILY lisinopril 5 mg tablet 5 mg PO DAILY Eliquis 5 mg tablet 5 mg PO BID Cardizem 120 mg tablet 120 mg PO BID 30 Days Qty: 60 0RF Discharge Orders: Discharge ED (Routine); Ordered 02/22/24 Ordered By: Marce Bo Referrals: Gretta Ferrari, GLUE JOINTER FEEDER [Primary Care Provider] - Patient Instructions: Atrial Fibrillation, A-fib (Atrial Fibrillation) (ED) Activity Restrictions/Additional Instructions: As we discussed we decided to forego any imaging today as you are just discharged from the hospital and this unlikely would not change any form of management. I would like you to continue your normal 120 mg Cardizem twice daily. As we discussed if you go into atrial fibrillation with rates above 120 I would like you to take the additional 30 mg of Cardizem prescribed to you today. You may check your blood pressure prior to administering this medication. If blood pressure is below 110/70 then do not administer. You may wait an hour and if symptoms do not improve you need to return to the emergency department. Would like you to continue current plan to follow-up with your director of analytics/catalog library assistant next week. Coding Level of Care Code ED Master Automotive Technician for Michael Curiel
== END 2024-02-22 00:49 | disposition home or self-care (01) ==
PROVIDERS: Emergency Provider Physician Assistant; PCP Registered Nurse
DX: I48.91 Unspecified atrial fibrillation (principal); Z79.01 Long term (current) use of anticoagulants; I12.9 Hypertensive chronic kidney disease with stage 1 through stage 4 chronic kidney disease, or unspecified chronic kidney disease; N18.9 Chronic kidney disease, unspecified; Z85.3 Personal history of malignant neoplasm of breast; Z92.21 Personal history of antineoplastic chemotherapy; Z92.3 Personal history of irradiation
CPT/HCPCS: 71045; 93005; 99285